=== PATIENT | male | born 1990 | race Caucasian/White ===

== ENCOUNTER 2018-05-23 20:44 | Emergency (ER) | payer MEDICAID ==
[~2018-05-23] VITALS: Ht 180.3 cm; Wt 85.0 kg
[~2018-05-23 20:44] MED LIST: CLON2TAB PO; INSU3INS6 SUBCUT; NOVOLOG; QUET300T2 PO
[2018-05-23] MEDS ORDERED: SODIUM CHLORIDE 0.9% 1,000 ML IV ONE (21:47)
[2018-05-23] MEDS ORDERED: MAGNESIUM/ALUMINUM HYDROXIDE/SIMETHICONE 30ML UDC PO STA (21:47)
[2018-05-23] MEDS ORDERED: FAMOTIDINE 20MG/2ML VIAL IV STA (21:47)
[2018-05-23 22:42] LABS: HEMATOCRIT. 41.9 % (42.0-52.0); MEAN CORPUSCULAR HEMOGLOBIN 27.5 pg (28.0-32.0); MEAN CORPUSCULAR VOLUME 82.4 fL (80.0-94.0); MEAN PLATELET VOLUME 7.8 fl (7.4-10.4); PLATELET 371 x1000/uL (130-400); RED BLOOD CELL COUNT 5.08 mill/uL (4.7-6.1); RED CELL DISTRIBUTION WIDTH 15.3 % (11.6-14.6)
[2018-05-23 22:45] LABS: CLARITY URINE CLEAR (CLEAR); COLOR URINE YELLOW (YELLOW); KETONES URINE 4+ (NEGATIVE); LEUKOCYTE ESTERASE URINE 1+ (NEGATIVE); NITRITE URINE NEGATIVE (NEGATIVE); OCCULT BLOOD URINE NEGATIVE (NEGATIVE); PH URINE 8.5 (4.5-8.0); PROTEIN URINE 1+ (NEGATIVE); SPECIFIC GRAVITY URINE 1.028 (1.005-1.030)
[2018-05-23 22:51] LABS: PROTHROMBIN TIME 10.8 sec (9.4-11.6)
[2018-05-23 22:52] LABS: CHLORIDE 95 mEq/L (98-107)
[2018-05-23 22:54] LABS: ATYPICAL LYMPHOCYTES 2; PLATELET ESTIMATE NORMAL
[2018-05-24] MEDS ORDERED: POTASSIUM CHLORIDE 20MEQ/PACKET PO ONE (00:15)
[2018-05-24 01:02] VITALS: BP 129/71
== END 2018-05-24 01:03 | disposition home or self-care (01) ==
LOC: ER 20:44
DX: K29.70 Gastritis, unspecified, without bleeding (principal); R11.10 Vomiting, unspecified; F41.9 Anxiety disorder, unspecified; F32.9 Major depressive disorder, single episode, unspecified; E11.9 Type 2 diabetes mellitus without complications; F20.9 Schizophrenia, unspecified; Z79.4 Long term (current) use of insulin; Z88.5 Allergy status to narcotic agent; Z88.6 Allergy status to analgesic agent
CPT/HCPCS: 36415; 80053; 81003; 82962; 83690; 85025; 85610; 96361; 96374; 99285; J3490; J7030; Z7610

== ENCOUNTER 2024-08-26 05:50 | Inpatient (IN) | payer OTHER ==
[~2024-08-26] VITALS: Ht 170.2 cm; Wt 75.0 kg
[~2024-08-26 05:50] MED LIST changes: +CLON-866 PO; -CLON2TAB PO; +CLON2TAB11 PO; +HALO5TAB2 PO; +INSU100I28 SUBCUT; -INSU3INS6 SUBCUT; -QUET300T2 PO; +QUET300T20 PO
[2024-08-26] MEDS: MORPHINE SULFATE 4 MG/ML INJ (FOR IV/IM USE) IV ONE (07:24)
[2024-08-26 09:43] LABS: HEMATOCRIT. 34.6 % (42.0-52.0); HEMOGLOBIN. 10.3 g/dL (14.0-18.0); MEAN CORPUSCULAR HEMOGLOBIN 27.5 pg (28.0-32.0); MEAN CORPUSCULAR HGB CONC 29.7 g/dL (31.0-37.0); MEAN CORPUSCULAR VOLUME 92.6 fL (80.0-94.0); MEAN PLATELET VOLUME 7.6 fl (7.4-10.4); PLATELET 406 x1000/uL (130-400); RED BLOOD CELL COUNT 3.74 mill/uL (4.7-6.1); RED CELL DISTRIBUTION WIDTH 18.4 % (11.6-14.6); WHITE BLOOD COUNT 13.5 x1000/uL (4.5-11.0)
[2024-08-26 09:45] LABS: CHLORIDE 97 mEq/L (98-107); POTASSIUM 4.4 mEq/L (3.5-5.1); SODIUM 132 mEq/L (136-145)
[2024-08-26 09:46] LABS: CARBON DIOXIDE 10 mEq/L (21-32)
[2024-08-26 09:47] LABS: CALCIUM 9.3 mg/dL (8.7-10.4)
[2024-08-26 09:51] LABS: CREATININE 1.3 mg/dL (0.6-1.3); UREA NITROGEN BLOOD 17 mg/dL (9-23)
[2024-08-26 09:54] LABS: DIFFERENTIAL COMMENT 1
[2024-08-26 10:04] LABS: TROPONIN I HIGH SENSITIVITY < 4 ng/L (3.0-53)
[2024-08-26 10:08] LABS: GLUCOSE 482 mg/dL (70-105)
[2024-08-26 11:05] LABS: ANISOCYTOSIS 2+; PLATELET ESTIMATE SLIGHTLY INCREASED
[2024-08-26] MEDS ORDERED: GUAIFENESIN 200MG/10ML SUGAR FREE UDC PO PRN (11:30)
[2024-08-26] MEDS ORDERED: IPRATROPIUM/ALBUTEROL 0.5-3(2.5)MG/3ML NEB HHN PRN (11:30)
[2024-08-26] MEDS ORDERED: CLONIDINE 0.1MG TABLET PO PRN (11:30)
[2024-08-26] MEDS ORDERED: ACETAMINOPHEN 325MG TABLET PO PRN ×2 (11:30)
[2024-08-26] MEDS ORDERED: HYDROCODONE/ACETAMINOPHEN 5/325MG TABLET PO PRN (11:30)
[2024-08-26] MEDS ORDERED: DOCUSATE SODIUM 100MG CAPSULE PO PRN (11:30)
[2024-08-26] MEDS ORDERED: NALOXONE HCL 0.4MG/ML VIAL IV PRN (11:45)
[2024-08-26 12:09] LABS: BG BASE EXCESS -20.5 mmol/L (-2.0-3.0); BG CARBOXYHEMOGLOBIN 0.7 % (0.5-1.5); BG DEOXYHEMOGLOBIN 2.1 % (0.0-5.0); BG FRACTION INSPIRED OXYGEN 21; BG HCO3 ACT 5.4 mmol/L (21.0-28.0); BG METHEMOGLOBIN 0.1 % (0.5-1.5); BG OXYGEN SATURATION 97.9 % (94.0-98.0); BG OXYHEMOGLOBIN 97.1 % (94.0-98.0); BG PCO2 14.3 mmHg (35.0-48.0); BG PH 7.192 (7.350-7.450); BG PO2 111.2 mmHg (83.0-108.0); BG SAMPLE SITE RIGHT RADIAL; BG TOTAL HEMOGLOBIN 11.4 g/dL (13.5-17.5); BG VENT MODE ROOM AIR
[2024-08-26] MEDS ORDERED: KCL 20MEQ/100ML PREMIX 100 ML IV PRN (12:15)
[2024-08-26] MEDS ORDERED: POTASSIUM CHLORIDE 40 MEQ in SODIUM CHLORIDE 0.9% 230 ML IV PRN (12:15)
[2024-08-26] MEDS ORDERED: MAGNESIUM 2 G PREMIX 50 ML IV PRN (12:15)
[2024-08-26] MEDS ORDERED: BLOOD SUGAR DIAGNOSTIC STRIP TEST PRN (12:15)
[2024-08-26] MEDS: DEXT 5%/0.9% NACL 1,000 ML IV SCH (12:15)
[2024-08-26] MEDS ORDERED: SODIUM PHOSPHATE 15 MMOL in SODIUM CHLORIDE 0.9% 245 ML IV PRN (12:15)
[2024-08-26] MEDS ORDERED: DEXTROSE 50% WATER 50ML SYRINGE IV PRN (12:15)
[2024-08-26 12:23] LABS: PHOSPHORUS 4.6 mg/dL (2.5-4.9)
[2024-08-26] MEDS: BLOOD SUGAR DIAGNOSTIC STRIP TEST SCH (12:26)
[2024-08-26] MEDS ORDERED: INSULIN REGULAR 100U/100ML PMX 100 ML IV SCH (12:30)
[2024-08-26] MEDS: INSULIN REGULAR (HUMULIN R) 1000UNITS/10ML VIAL IV NR (12:44)
[2024-08-26] MEDS: MORPHINE SULFATE 2 MG/ML INJ (NOT FOR IM USE) IV PRN (12:48)
[2024-08-26] MEDS: INSULIN REGULAR 100U/100ML PMX 100 ML IV SCH (12:53)
[2024-08-26] MEDS: SODIUM CHLORIDE 0.9% 1,000 ML IV SCH (12:54)
[2024-08-26 12:59] LABS: BETA HYDROXYBUTYRATE 9.1 mMol/L (0.0-0.3)
[2024-08-26 13:14] LABS: CHLORIDE 98 mEq/L (98-107); POTASSIUM 4.4 mEq/L (3.5-5.1); SODIUM 132 mEq/L (136-145)
[2024-08-26 13:16] LABS: CALCIUM 9.3 mg/dL (8.7-10.4)
[2024-08-26 13:20] LABS: CREATININE 1.3 mg/dL (0.6-1.3); IRON 22 ug/dL (65-175); UREA NITROGEN BLOOD 17 mg/dL (9-23)
[2024-08-26] MEDS: PANTOPRAZOLE SODIUM 40 MG/VIAL IV NR (13:20)
[2024-08-26] MEDS: METOCLOPRAMIDE HCL 10MG/2ML VIAL IV NR (13:20)
[2024-08-26 13:23] LABS: TOTAL IRON BINDING CAPACITY 383 ug/dl (250-425)
[2024-08-26 13:28] LABS: CARBON DIOXIDE < 10 mEq/L (21-32)
[2024-08-26 13:29] LABS: GLUCOSE 479 mg/dL (70-105)
[2024-08-26] MEDS: PIPERACILLIN/TAZO 3.375G/50ML 50 ML IV NR (16:38)
[2024-08-26] MEDS ORDERED: CEFTRIAXONE 1GM/50ML 50 ML IV SCH (17:00)
[2024-08-26] MEDS: SODIUM BICARBONATE 8.4% 50MEQ/50ML SYR IV NR (17:16)
[2024-08-26] MEDS: VANCOMYCIN 1.5GM PMX (XELLIA) 300 ML IV NR (17:30)
[2024-08-26 19:08] LABS: CLARITY URINE CLEAR (CLEAR); COLOR URINE YELLOW (YELLOW); GLUCOSE URINE 3+ (NEGATIVE); KETONES URINE 4+ (NEGATIVE); LEUKOCYTE ESTERASE URINE NEGATIVE (NEGATIVE); NITRITE URINE NEGATIVE (NEGATIVE); OCCULT BLOOD URINE NEGATIVE (NEGATIVE); PH URINE 5.5 (4.5-8.0); PROTEIN URINE 1+ (NEGATIVE); SPECIFIC GRAVITY URINE 1.022 (1.005-1.030); UROBILINOGEN URINE 0.2 E.U./dL (0.2-1.0)
[2024-08-26 19:11] LABS: CHLORIDE 113 mEq/L (98-107); POTASSIUM 3.6 mEq/L (3.5-5.1)
[2024-08-26 19:12] LABS: CARBON DIOXIDE 21 mEq/L (21-32)
[2024-08-26 19:19] LABS: SODIUM 145 mEq/L (136-145)
[2024-08-26 19:27] LABS: BACTERIA URINE NONE SEEN; SQUAMOUS EPITHELIAL CELL URINE 1+ /lpf (RARE/1+); WBC URINE 0-2 /hpf (0-2)
[2024-08-26] MEDS: LIDOCAINE HCL 4% (40MG/ML) SOLN 50ML TOP SCH (21:00)
[2024-08-26] MEDS: QUETIAPINE FUMARATE 50MG TABLET PO SCH (23:12)
[2024-08-27 00:20] LABS: CHLORIDE 111 mEq/L (98-107); POTASSIUM 4.4 mEq/L (3.5-5.1); SODIUM 140 mEq/L (136-145)
[2024-08-27 00:21] LABS: CARBON DIOXIDE 17 mEq/L (21-32)
[2024-08-27 00:28] LABS: CREATINE KINASE 33 IU/L (46-171); PHOSPHORUS 2.1 mg/dL (2.5-4.9)
[2024-08-27 00:37] LABS: TROPONIN I HIGH SENSITIVITY < 4 ng/L (3.0-53)
[2024-08-27] MEDS: PIPERACILLIN/TAZO 3.375G/50ML 50 ML IV SCH (06:00)
[2024-08-27] MEDS: VANCOMYCIN 1GM PMX (XELLIA) 200 ML IV SCH (10:16)
[2024-08-27] MEDS: CITALOPRAM HYDROBROMIDE 10MG TABLET PO SCH (10:16)
[2024-08-27 10:36] LABS: BASOPHILS % 0.5 % (0.0-2.0); EOSINOPHILS % 0.1 % (0.0-5.0); HEMATOCRIT. 30.1 % (42.0-52.0); HEMOGLOBIN. 9.7 g/dL (14.0-18.0); LYMPHOCYTES % 9.8 % (20.0-50.0); MEAN CORPUSCULAR HEMOGLOBIN 28.2 pg (28.0-32.0); MEAN CORPUSCULAR HGB CONC 32.2 g/dL (31.0-37.0); MEAN CORPUSCULAR VOLUME 87.4 fL (80.0-94.0); MEAN PLATELET VOLUME 7.1 fl (7.4-10.4); NEUTROPHILS % 83.6 % (40.0-76.0); PLATELET 305 x1000/uL (130-400); RED BLOOD CELL COUNT 3.44 mill/uL (4.7-6.1); RED CELL DISTRIBUTION WIDTH 18.1 % (11.6-14.6); WHITE BLOOD COUNT 6.4 x1000/uL (4.5-11.0)
[2024-08-27 10:42] LABS: CHLORIDE 113 mEq/L (98-107)
[2024-08-27 10:43] LABS: CARBON DIOXIDE 24 mEq/L (21-32); POTASSIUM 3.6 mEq/L (3.5-5.1); SODIUM 142 mEq/L (136-145)
[2024-08-27 10:44] LABS: CALCIUM 8.7 mg/dL (8.7-10.4)
[2024-08-27 10:49] LABS: LDL CHOLESTEROL 63 mg/dL (5-100); TRIGLYCERIDE 199 mg/dL (0-150); UREA NITROGEN BLOOD 8 mg/dL (9-23)
[2024-08-27 10:50] LABS: ALBUMIN 3.7 g/dL (3.2-4.8); CHOLESTEROL 136 mg/dL (<200); CREATINE KINASE 21 IU/L (46-171); HDL CHOLESTEROL 42 mg/dL (>55)
[2024-08-27 10:51] LABS: PHOSPHORUS 1.5 mg/dL (2.5-4.9)
[2024-08-27 10:53] LABS: GLUCOSE 239 mg/dL (70-105); T4 FREE 0.81 ng/dL (0.89-1.76); THYROID STIMULATING HORMONE 0.42 uIU/mL (0.55-4.78)
[2024-08-27 11:05] LABS: TROPONIN I HIGH SENSITIVITY < 4 ng/L (3.0-53)
[2024-08-27] MEDS: INSULIN GLARGINE 100 UNITS/ML SUBCUT ONE (11:40)
[2024-08-27] MEDS ORDERED: DEXTROSE 50% WATER 50ML SYRINGE IV PRN (15:45)
[2024-08-27] MEDS: BLOOD SUGAR DIAGNOSTIC STRIP TEST SCH (17:14)
[2024-08-27] MEDS: INSULIN LISPRO 100 UNITS/ML SUBCUT SCH ×2 (17:59→18:47)
[2024-08-27 23:00] VITALS: BP 124/79; PULSE 102; RESP 17; TEMP 36.8072
[2024-08-27] MEDS: MORPHINE SULFATE 2 MG/ML INJ (NOT FOR IM USE) IV PRN (23:05)
[2024-08-27] MEDS ORDERED: MORPHINE SULFATE 2 MG/ML INJ (NOT FOR IM USE) IV PRN (23:45)
[2024-08-28] VITALS (12 sets, daily range): BP systolic 98–128; BP diastolic 63–89; PULSE 75–95; RESP 11–19; TEMP 36.61404–36.9474; O2SAT 97–100
[2024-08-28] MEDS ORDERED: LIDOCAINE HCL 4% (40MG/ML) SOLN 50ML TOP SCH (04:45)
[2024-08-28 06:21] LABS: CHLORIDE 111 mEq/L (98-107); SODIUM 141 mEq/L (136-145)
[2024-08-28 06:22] LABS: CALCIUM 8.4 mg/dL (8.7-10.4); CARBON DIOXIDE 23 mEq/L (21-32)
[2024-08-28 06:27] LABS: CREATININE 0.8 mg/dL (0.6-1.3); GLUCOSE 313 mg/dL (70-105); UREA NITROGEN BLOOD 7 mg/dL (9-23)
[2024-08-28] MEDS: MAGNESIUM 2 G PREMIX 50 ML IV NR (09:53)
[2024-08-28] MEDS: KETOROLAC 15MG/ML VIAL IV PRN (12:24)
[2024-08-28] MEDS: INSULIN GLARGINE 100 UNITS/ML SUBCUT SCH ×2 (12:27→21:14)
[2024-08-28] MEDS: QUETIAPINE FUMARATE 200MG TABLET PO SCH (21:12)
[2024-08-28] MEDS ORDERED: INSULIN GLARGINE 100 UNITS/ML SUBCUT SCH ×2 (22:00)
[2024-08-29] VITALS: BP 109/79; PULSE 83; RESP 19; TEMP 36.55848; O2SAT 100
[2024-08-29 04:00] VITALS: BP 114/67; PULSE 87; RESP 13; TEMP 36.3918; O2SAT 99
[2024-08-29 06:53] LABS: BASOPHILS % 0.6 % (0.0-2.0); EOSINOPHILS % 0.7 % (0.0-5.0); HEMATOCRIT. 30.4 % (42.0-52.0); HEMOGLOBIN. 9.6 g/dL (14.0-18.0); MEAN CORPUSCULAR HEMOGLOBIN 27.4 pg (28.0-32.0); MEAN CORPUSCULAR HGB CONC 31.6 g/dL (31.0-37.0); MEAN CORPUSCULAR VOLUME 86.7 fL (80.0-94.0); MONOCYTES % 7.9 % (2.0-8.0); NEUTROPHILS % 58.8 % (40.0-76.0); PLATELET 266 x1000/uL (130-400); RED BLOOD CELL COUNT 3.51 mill/uL (4.7-6.1); RED CELL DISTRIBUTION WIDTH 17.6 % (11.6-14.6); WHITE BLOOD COUNT 5.8 x1000/uL (4.5-11.0)
[2024-08-29 06:57] LABS: CARBON DIOXIDE 26 mEq/L (21-32); CHLORIDE 108 mEq/L (98-107); POTASSIUM 3.7 mEq/L (3.5-5.1); SODIUM 142 mEq/L (136-145)
[2024-08-29 06:58] LABS: CALCIUM 9.1 mg/dL (8.7-10.4)
[2024-08-29 07:02] LABS: CREATININE 0.9 mg/dL (0.6-1.3)
[2024-08-29 07:03] LABS: GLUCOSE 360 mg/dL (70-105); UREA NITROGEN BLOOD 12 mg/dL (9-23)
[2024-08-29 08:00] VITALS: BP 120/85; PULSE 77; RESP 14; TEMP 36.44736; O2SAT 99
[2024-08-29] MEDS: INSULIN GLARGINE 100 UNITS/ML SUBCUT SCH (10:18)
[2024-08-29 12:00] VITALS: BP 118/83; PULSE 93; RESP 21; TEMP 36.44736; O2SAT 99
[2024-08-29] MEDS: MAGNESIUM 1 G PREMIX 100 ML IV NR (12:34)
[2024-08-29] MEDS: INSULIN LISPRO 100 UNITS/ML SUBCUT SCH (15:03)
[2024-08-29 16:00] VITALS: BP 102/70; PULSE 84; RESP 13
[2024-08-29 20:00] VITALS: BP 119/88; PULSE 92; RESP 26; TEMP 36.61404; O2SAT 99
[2024-08-29] MEDS: VANCOMYCIN 1.25GM PMX (XELLIA) 250 ML IV SCH (20:20)
[2024-08-30] VITALS: BP_SYST 104; BP_SYST 130; BP_DIAS 60; BP_DIAS 91; PULSE 80; PULSE 95; RESP 20; TEMP 35.61396; TEMP 36.55848; O2SAT 100; O2SAT 98
[2024-08-30 04:00] VITALS: BP 108/66; PULSE 67; RESP 20; TEMP 35.89176; O2SAT 98
[2024-08-30 08:00] VITALS: BP 112/71; PULSE 70; RESP 19; TEMP 35.78064; O2SAT 99
[2024-08-30 12:00] VITALS: BP 136/87; PULSE 81; RESP 19; TEMP 36.3918; O2SAT 96
[2024-08-30] MEDS: LORAZEPAM 0.5MG TABLET PO PRN (15:58)
[2024-08-30 16:00] VITALS: BP 123/78; PULSE 79; RESP 19; TEMP 35.89176; O2SAT 97
[2024-08-30 20:00] VITALS: BP 230/81; PULSE 88; RESP 20; TEMP 36.114; O2SAT 100
[2024-08-30] MEDS: INSULIN GLARGINE 100 UNITS/ML SUBCUT SCH (21:23)
[2024-08-31] VITALS: BP_SYST 102; BP_SYST 122; BP_DIAS 63; BP_DIAS 78; PULSE 80; PULSE 82; RESP 20; TEMP 36.22512; TEMP 36.50292; O2SAT 98; O2SAT 99
[2024-08-31 04:00] VITALS: BP 132/93; PULSE 88; RESP 20; TEMP 36.3918; O2SAT 100
[2024-08-31] MEDS ORDERED: BUPIVACAINE HCL/PF 0.5% (5MG/ML) 10ML ONE (06:45)
[2024-08-31] MEDS ORDERED: LIDOCAINE HCL 1% 20ML VIAL ONE ×2 (06:45→07:32)
[2024-08-31 06:50] LABS: CHLORIDE 103 mEq/L (98-107); POTASSIUM 4.6 mEq/L (3.5-5.1); SODIUM 139 mEq/L (136-145)
[2024-08-31 06:51] LABS: CALCIUM 9.2 mg/dL (8.7-10.4); CARBON DIOXIDE 29 mEq/L (21-32)
[2024-08-31 06:56] LABS: CREATININE 0.8 mg/dL (0.6-1.3); UREA NITROGEN BLOOD 15 mg/dL (9-23)
[2024-08-31 07:03] LABS: GLUCOSE 203 mg/dL (70-105)
[2024-08-31] MEDS ORDERED: MIDAZOLAM HCL 2 MG/2 ML VIAL ONE (07:32)
[2024-08-31] MEDS ORDERED: PROPOFOL 200MG/20ML VIAL IV ONE (07:32)
[2024-08-31 07:43] LABS: HEMOGLOBIN 9.4 g/dL (14.0-18.0); MEAN CORPUSCULAR HEMOGLOBIN 27.1 pg (28.0-32.0); MEAN CORPUSCULAR HGB CONC 32.3 g/dL (31.0-37.0); MEAN CORPUSCULAR VOLUME 83.8 fL (80.0-94.0); PLATELET 333 x1000/uL (130-400); RED BLOOD CELL COUNT 3.46 mill/uL (4.7-6.1); RED CELL DISTRIBUTION WIDTH 17.4 % (11.6-14.6); WHITE BLOOD COUNT 6.6 x1000/uL (4.5-11.0)
[2024-08-31] MEDS ORDERED: FENTANYL CITRATE/PF 50MCG/ML 2ML VIAL ONE (07:48)
[2024-08-31] MEDS: KETOROLAC 15MG/ML VIAL IV PRN (09:56)
[2024-08-31] MEDS: ENOXAPARIN 40MG/0.4ML SYR SUBCUT SCH (09:57)
[2024-08-31 12:00] VITALS: BP 138/95; PULSE 85; RESP 20; TEMP 36.72516; O2SAT 99
[2024-08-31 16:00] VITALS: BP 139/94; PULSE 112; RESP 20; TEMP 36.72516; O2SAT 100
[2024-08-31 20:00] VITALS: BP 139/98; PULSE 124; RESP 20; TEMP 36.28068; O2SAT 96
[2024-09-01] VITALS: BP 96/54; PULSE 100; RESP 20; TEMP 36.44736; O2SAT 96
[2024-09-01 04:00] VITALS: BP 142/97; PULSE 95; RESP 20; TEMP 36.83628; O2SAT 100
[2024-09-01] MEDS: HYDROCODONE/ACETAMINOPHEN 5/325MG TABLET PO PRN (06:07)
[2024-09-01 08:00] VITALS: BP 127/83; PULSE 111; RESP 19; TEMP 36.61404; O2SAT 100
[2024-09-01 12:00] VITALS: BP 120/83; PULSE 102; RESP 18; TEMP 36.61404; O2SAT 100
[2024-09-01] MEDS: VANCOMYCIN 1.25GM PMX (XELLIA) 250 ML IV SCH (14:00)
[2024-09-01 16:00] VITALS: BP 122/84; PULSE 93; RESP 18; TEMP 36.83628; O2SAT 100
[2024-09-01 20:00] VITALS: BP 137/90; PULSE 131; RESP 20; TEMP 36.50292; O2SAT 99
[2024-09-02] VITALS: BP 93/51; PULSE 114; RESP 20; TEMP 36.44736; O2SAT 100
[2024-09-02 04:00] VITALS: BP 101/63; PULSE 79; RESP 20; TEMP 36.16956; O2SAT 100
[2024-09-02] MEDS ORDERED: LIDOCAINE HCL 1% 10 MG/ML 10ML VIAL ONE (10:02)
[2024-09-02 20:00] VITALS: BP 109/68; PULSE 107; RESP 20; TEMP 36.3918; O2SAT 98
[2024-09-03] VITALS: BP 103/60; PULSE 102; RESP 18; TEMP 36.3918; O2SAT 99
[2024-09-03 04:00] VITALS: BP 102/59; PULSE 94; RESP 18; TEMP 36.78072; O2SAT 99
[2024-09-03 08:00] VITALS: BP 103/63; PULSE 91; RESP 17; TEMP 37.00296; O2SAT 97
[2024-09-03 09:39] LABS: HEMATOCRIT. 33.1 % (42.0-52.0); HEMOGLOBIN. 10.5 g/dL (14.0-18.0); MEAN CORPUSCULAR HEMOGLOBIN 27.3 pg (28.0-32.0); MEAN CORPUSCULAR HGB CONC 31.8 g/dL (31.0-37.0); MEAN CORPUSCULAR VOLUME 85.7 fL (80.0-94.0); MEAN PLATELET VOLUME 7.1 fl (7.4-10.4); PLATELET 449 x1000/uL (130-400); RED BLOOD CELL COUNT 3.86 mill/uL (4.7-6.1); RED CELL DISTRIBUTION WIDTH 17.4 % (11.6-14.6); WHITE BLOOD COUNT 6.9 x1000/uL (4.5-11.0)
[2024-09-03 09:42] LABS: CHLORIDE 99 mEq/L (98-107); POTASSIUM 4.1 mEq/L (3.5-5.1); SODIUM 134 mEq/L (136-145)
[2024-09-03 09:43] LABS: CARBON DIOXIDE 27 mEq/L (21-32)
[2024-09-03 09:44] LABS: CALCIUM 10.1 mg/dL (8.7-10.4)
[2024-09-03 09:48] LABS: UREA NITROGEN BLOOD 25 mg/dL (9-23)
[2024-09-03 09:53] LABS: DIFFERENTIAL COMMENT 1
[2024-09-03 09:59] LABS: GLUCOSE 374 mg/dL (70-105)
[2024-09-03 12:00] VITALS: BP 103/64; PULSE 89; RESP 19; TEMP 37.11408; O2SAT 100
[2024-09-03] MEDS: INSULIN LISPRO 100 UNITS/ML SUBCUT SCH (13:19)
[2024-09-03 16:00] VITALS: BP 126/81; PULSE 129; RESP 18; TEMP 37.00296; O2SAT 100
[2024-09-03 20:00] VITALS: BP 126/92; PULSE 109; RESP 18; TEMP 36.61404; O2SAT 100
[2024-09-03 20:06] LABS: ANISOCYTOSIS 1+; PLATELET ESTIMATE INCREASED
[2024-09-03] MEDS: VANCOMYCIN 1GM PMX (XELLIA) 200 ML IV SCH (20:47)
[2024-09-04] VITALS: BP 120/83; PULSE 114; RESP 18; TEMP 36.72516; O2SAT 100
[2024-09-04 04:00] VITALS: BP 125/85; PULSE 108; RESP 18; TEMP 36.6696; TEMP 36.66960; O2SAT 99
[2024-09-04] MEDS: MAGNESIUM/ALUMINUM HYDROXIDE/SIMETHICONE 30ML UDC PO PRN (06:20)
[2024-09-04] MEDS: PANTOPRAZOLE 40MG DR TABLET PO SCH (11:23)
[2024-09-04 14:21] VITALS: BP 125/85; PULSE 108; TEMP 98; O2SAT 98
== END 2024-09-04 14:45 | disposition home health service (06) | DRG 710 ==
LOC: ER 06:22 → EDBEDREQTM 08:34 → EDBEDREQ 08:34 → EDBEDREQSVC 12:43 → 5EST 08-27 21:56 → 6EST 08-29 23:55
PROVIDERS: ADMIT Hospitalist; ATTEND Hospitalist
PROC: 0JBQ0ZZ Excision of Right Foot Subcutaneous Tissue and Fascia, Open Approach (ICD-10-PCS; 2024-08-27)
PROC: 0Y6P0Z1 Detachment at Right 1st Toe, High, Open Approach (ICD-10-PCS; principal; 2024-08-31)
PROC: 02HV33Z Insertion of Infusion Device into Superior Vena Cava, Percutaneous Approach (ICD-10-PCS; 2024-09-02)
PROC: B548ZZA Ultrasonography of Superior Vena Cava, Guidance (ICD-10-PCS; 2024-09-02)
PROC: B5181ZA Fluoroscopy of Superior Vena Cava using Low Osmolar Contrast, Guidance (ICD-10-PCS; 2024-09-02)
DX: A41.9 Sepsis, unspecified organism (principal); E11.10 Type 2 diabetes mellitus with ketoacidosis without coma; E87.1 Hypo-osmolality and hyponatremia; M86.171 Other acute osteomyelitis, right ankle and foot; L03.115 Cellulitis of right lower limb; E11.51 Type 2 diabetes mellitus with diabetic peripheral angiopathy without gangrene; L97.514 Non-pressure chronic ulcer of other part of right foot with necrosis of bone; E11.621 Type 2 diabetes mellitus with foot ulcer; E11.43 Type 2 diabetes mellitus with diabetic autonomic (poly)neuropathy; K31.84 Gastroparesis; E11.69 Type 2 diabetes mellitus with other specified complication; D75.839 Thrombocytosis, unspecified; F20.9 Schizophrenia, unspecified; F32.9 Major depressive disorder, single episode, unspecified; L02.611 Cutaneous abscess of right foot; L84 Corns and callosities; R26.9 Unspecified abnormalities of gait and mobility; M20.42 Other hammer toe(s) (acquired), left foot; F32.A Depression, unspecified; D50.9 Iron deficiency anemia, unspecified; Z79.4 Long term (current) use of insulin; Z88.5 Allergy status to narcotic agent; Z88.6 Allergy status to analgesic agent
CPT/HCPCS: 36415; 36573; 36600; 71045; 71111; 73630; 73718; 80048; 80051; 80061; 80202; 81003; 82010; 82040; 82375; 82550; 82805; 82962; 83540; 83550; 83605; 83735; 83880; 83930; 84100; 84145; 84439; 84443; 84484; 85025; 85027; 85651; 87070; 87077; 87186; 88304; 88311; 93005; 93306; 99285; C1725; J1650; J1815; J1885; J2250; J2270; J2470; J2543; J2704; J2765; J3010; J3370; J3475; J3490